=== PATIENT | female | born 1990 | race African-American/Black ===

== ENCOUNTER 2024-06-09 07:45 | Day surgery (SDC) | payer OTHER ==
[2024-06-04 09:44] VITALS: BP 124/85
[2024-06-04 10:21] LABS: HEMATOCRIT 30.6 % (36.0-45.00); HEMOGLOBIN 10.5 g/dL (12.0-15.00); MEAN CELL VOLUME 85.4 fL (80.00-100.00); MEAN CORPUSCULAR HEMOGLOBIN 29.3 pg (27.00-32.0); MEAN CORPUSCULAR HGB CONC 34.4 g/dl (32.0-36.0); PLATELET COUNT 336 K/uL (150-450); RED BLOOD COUNT 3.58 M/uL (4.00-6.00); RED CELL DISTRIBUTION WIDTH 12.8 % (11.5-14.5)
[2024-06-04 10:38] LABS: PH,URINE 5.5 (5.0-8.0); URINE APPEARANCE Clear; URINE BILIRRUBIN Negative (NEGATIVE); URINE BLOOD Large; URINE COLOR Yellow; URINE GLUCOSE Negative (NEGATIVE); URINE KETONE Negative (NEGATIVE); URINE LEUKOCYTE Trace; URINE NITRATE Negative; URINE PROTEIN 30 (NEGATIVE); URINE UROBILINOGEN 0.2 E.U./dl
[2024-06-04 10:41] LABS: INR 0.97; PARTIAL THROMBOPLASTIN TIME 24.8 SECONDS (22.0-34.0); PROTHROMBIN TIME 10.6 SECONDS (9.0-11.5); URINE BACTERIA 181.1 uL (0.0-1933); URINE EPITHELIAL CELLS 14.5 uL (0.0-38.8); URINE RBC 86.7 uL (0.0-20.8); URINE WBC 15.3 uL (0.0-23.2)
[2024-06-04 10:52] LABS: URINE CAST 0.14 uL (0.0-1.40)
[2024-06-04 12:00] LABS: ALBUMIN 3.8 gm/dL (3.4-5.0); BILIRUBIN TOTAL 0.59 mg/dL (0.3-1.2); CALCIUM 8.7 mg/dL (8.5-10.1); CREATININE SERUM 1.14 mg/dL (0.55-1.02); GFR 54.24; GLOBULINA 3.5 G/DL (2.4-3.5); POTASSIUM 5.34 mEq/L (3.5-5.1); TOTAL PROTEIN 7.3 gm/dL (6.4-8.2)
[~2024-06-09] VITALS: Ht 147.3 cm; Wt 56.7 kg
[~2024-06-09 07:45] MED LIST: COZAAR100 MG PO; LOVAZA1 GM; TOPROL XL100 M1 PO
[2024-06-09] MEDS ORDERED: CEFAZOLIN SODIUM 1,000 MG VIAL ONE (15:51)
[2024-06-09] MEDS ORDERED: MORPHINE SULFATE 4 MG/ML VIAL IV ONE (20:50)
== END 2024-06-09 22:40 | disposition home or self-care (01) ==
LOC: CIR.AMB 07:45
PROVIDERS: ATTEND Surgery
DX: K42.0 Umbilical hernia with obstruction, without gangrene (principal); I10 Essential (primary) hypertension; Z91.040 Latex allergy status
CPT/HCPCS: 49594; C1781